=== PATIENT | female | born 1960 | race Caucasian/White ===

== ENCOUNTER 2019-05-03 22:50 | Inpatient (IN) | payer MEDICARE, MEDICAID ==
[~2019-05-03] VITALS: Ht 162.6 cm; Wt 91.4 kg
[2019-05-03] MEDS ORDERED: BENZ1TAB10 PO (23:18)
[2019-05-03] MEDS ORDERED: QUET100T PO (23:18)
[2019-05-04] MEDS ORDERED: IBUPROFEN 800 MG TABLET PO ONE (00:45)
[2019-05-04 01:16] LABS: BASOPHILS % (AUTO) 0.2 % (0.0-2.0); EOSINOPHILS % (AUTO) 1.2 % (1.0-6.0); HEMATOCRIT 43.5 % (36-46); HEMOGLOBIN 14.8 g/dL (12.0-16.0); LYMPHOCYTES # (AUTO) 1.8 K/uL (1.0-4.8); LYMPHOCYTES % (AUTO) 18.7 % (22.0-44.0); MEAN CORPUSCULAR HGB CONC 34.1 G/dL (31.0-37.0); MEAN CORPUSCULAR VOLUME 88 fL (80-100); MONOCYTES # (AUTO) 0.5 K/uL (0.1-1.0); MONOCYTES % (AUTO) 5.1 % (2.0-9.0); NEUTROPHILS # (AUTO) 7.2 K/uL (1.8-7.7); NEUTROPHILS % (AUTO) 74.8 % (40.0-70.0); PLATELET COUNT (AUTO) 182 K/uL (150-450); RED BLOOD CELL COUNT(AUTO) 4.94 MIL/uL (4.00-5.20)
[2019-05-04 01:17] LABS: APPEARANCE,URINE CLEAR (CLEAR); BILIRUBIN,URINE NEGATIVE (NEGATIVE); GLUCOSE, URINE (UA) NEGATIVE (NEGATIVE); KETONES,URINE NEGATIVE (NEGATIVE); LEUKOCYTE ESTERASE ,URINE NEGATIVE (NEGATIVE); NITRATE,URINE NEGATIVE (NEGATIVE); OCCULT BLOOD,URINE NEGATIVE (NEGATIVE); PROTEIN,URINE NEGATIVE (NEGATIVE); UROBILINOGEN,URINE 0.2 mg/dL (<=1.0)
[2019-05-04 01:22] LABS: AMPHET/METH SCREEN,URINE NEGATIVE (NEGATIVE); BARBITURATE SCREEN, URINE NEGATIVE (NEGATIVE); BENZODIAZEPINES SCREEN,URINE NEGATIVE (NEGATIVE); COCAINE SCREEN,URINE NEGATIVE (NEGATIVE); METHADONE SCREEN, URINE NEGATIVE (NEGATIVE); OPIATE SCREEN,URINE NEGATIVE (NEGATIVE)
[2019-05-04 01:23] LABS: ANION GAP 10 mmol/L (8-16); CALCIUM, TOTAL 10.1 mg/dL (8.8-10.5); CARBON DIOXIDE 27 mmol/L (22-29); CHLORIDE 103 mmol/L (98-107); CREATININE 0.78 mg/dL (0.60-1.30); GLOMERULAR FILTR. RATE CALC > 60 mL/min (>60); GLUCOSE,RANDOM 145 mg/dL (70-110); POTASSIUM 4.4 mmol/L (3.5-5.1); SODIUM SERUM 140 mmol/L (136-145); UREA NITROGEN, BLOOD 9 mg/dL (7-18)
[2019-05-04 01:29] LABS: ALANINE AMINOTRANSFERASE 27 U/L (12-78); ALBUMIN 4.2 g/dL (3.4-5.0); ALKALINE PHOSPHATASE 73 U/L (46-116); ASPARTATE AMINOTRANSFERASE 19 U/L (15-37); BILIRUBIN,TOTAL 1.2 mg/dL (0.1-1.0); TOTAL PROTEIN, SERUM 8.1 g/dL (6.4-8.2)
[2019-05-04] MEDS ORDERED: ZOLPIDEM TARTRATE 10 MG TABLET PO PRN (01:30)
[2019-05-04] MEDS ORDERED: LORazepam 2 MG TABLET PO PRN (01:30)
[2019-05-04] MEDS ORDERED: HALOPERIDOL 5 MG TABLET PO PRN (01:30)
[2019-05-04 01:31] LABS: CANNABINOID SCREEN,URINE NEGATIVE (NEGATIVE); PHENCYCLIDINE SCREEN,URINE NEGATIVE (NEGATIVE)
[2019-05-04 04:51] VITALS: BP 111/82
[2019-05-04] MEDS ORDERED: INFLUENZA VIRUS VACCINE QVS 2019-20 (3YR+)/PF 60 MCG/0.5 ML SYRINGE IM ONE (07:45)
[2019-05-04] MEDS ORDERED: NICOTINE 14 MG/24 HOUR PATCH TD PRN (13:15)
[2019-05-04] MEDS ORDERED: MAGNESIUM HYDROXIDE SUSPENSION 30 ML UDCUP PO PRN (13:15)
[2019-05-04] MEDS ORDERED: DOCUSATE SODIUM 100 MG CAPSULE PO PRN (13:15)
[2019-05-04] MEDS ORDERED: GuaiFENesin/D-METHORPHAN [SUGAR-FREE] 200-20MG/10 ML SYRUP UDCUP PO PRN (13:15)
[2019-05-04] MEDS ORDERED: MAG HYDROX/AL HYDROX/SIMETH ES 30 ML SUSPENSION UDCUP PO PRN (13:15)
[2019-05-04] MEDS ORDERED: PETROLATUM,WHITE 28 GM JELLY TP PRN (13:15)
[2019-05-04] MEDS ORDERED: ONDANSETRON HCL 4 MG TABLET PO PRN (13:15)
[2019-05-04] MEDS ORDERED: LOPERAMIDE HCL 2 MG CAPSULE PO PRN (13:15)
[2019-05-04] MEDS ORDERED: CloNIDine HCL 0.1 MG TABLET PO PRN (13:15)
[2019-05-04] MEDS ORDERED: ALBUTEROL SULFATE HFA 90 MCG/PUFF 8 GM INHALER IH PRN (13:15)
[2019-05-04] MEDS ORDERED: ACETAMINOPHEN 325 MG TABLET PO PRN (13:15)
[2019-05-04 14:22] VITALS: BP 140/85
[2019-05-04] MEDS: IBUPROFEN 400 MG TABLET PO PRN (14:22)
[2019-05-04 19:52] VITALS: BP 136/77
[2019-05-04] MEDS: QUEtiapine FUMARATE 100 MG TABLET PO SCH (21:35)
[2019-05-04] MEDS: SIMVASTATIN 10 MG TABLET PO SCH (21:35)
[2019-05-05 03:45] VITALS: BP 137/60
[2019-05-05] MEDS: MetFORMIN HCL 500 MG TABLET PO SCH (07:13)
[2019-05-05 08:00] LABS: CHOL/HDL RATIO 2.9 (3.9-5.7)
[2019-05-05 08:10] VITALS: BP 126/79
[2019-05-05] MEDS: LISINOPRIL 10 MG TABLET PO SCH (09:41)
[2019-05-05] MEDS: BENZTROPINE MESYLATE 1 MG TABLET PO SCH (09:41)
[2019-05-05] MEDS: IBUPROFEN 400 MG TABLET PO PRN (12:17)
[2019-05-05 16:45] VITALS: BP 131/88
[2019-05-05] MEDS: QUEtiapine FUMARATE 100 MG TABLET PO SCH (20:25)
[2019-05-05] MEDS: SIMVASTATIN 10 MG TABLET PO SCH (20:25)
[2019-05-06 04:55] VITALS: BP 120/78
[2019-05-06] MEDS: MetFORMIN HCL 500 MG TABLET PO SCH (06:54)
[2019-05-06 09:20] VITALS: BP 134/78
[2019-05-06] MEDS: IBUPROFEN 400 MG TABLET PO PRN (09:22)
[2019-05-06] MEDS: BENZTROPINE MESYLATE 1 MG TABLET PO SCH (09:22)
[2019-05-06] MEDS: LISINOPRIL 10 MG TABLET PO SCH (09:22)
[2019-05-06 16:15] VITALS: BP 117/72
[2019-05-06] MEDS: QUEtiapine FUMARATE 100 MG TABLET PO SCH (20:20)
[2019-05-06] MEDS: SIMVASTATIN 10 MG TABLET PO SCH (20:20)
[2019-05-06] MEDS ORDERED: DiphenhydrAMINE HCL 25 MG CAPSULE PO SCH (21:00)
[2019-05-07 00:30] VITALS: BP 106/73
[2019-05-07] MEDS: MetFORMIN HCL 500 MG TABLET PO SCH (07:02)
[2019-05-07 09:36] VITALS: BP 150/108
[2019-05-07] MEDS: LISINOPRIL 10 MG TABLET PO SCH (09:51)
[2019-05-07] MEDS: BENZTROPINE MESYLATE 1 MG TABLET PO SCH (09:51)
[2019-05-07] MEDS ORDERED: DIPH50 PO (11:11)
[2019-05-07] MEDS ORDERED: SIMV-259 PO (11:30)
[2019-05-07] MEDS ORDERED: LISI-661 PO (11:30)
[2019-05-07] MEDS ORDERED: METF-960 PO (11:30)
== END 2019-05-07 13:50 | disposition home or self-care (01) | DRG 885 ==
LOC: EMS 22:52 → 3EI 05-04 02:12
PROVIDERS: ADMIT Psychiatry & Neurology Psychiatry; ATTEND Psychiatry & Neurology Psychiatry
DX: F20.0 Paranoid schizophrenia (principal); R17 Unspecified jaundice; R45.851 Suicidal ideations; S82.891A Other fracture of right lower leg, initial encounter for closed fracture; R73.9 Hyperglycemia, unspecified; X58.XXXA Exposure to other specified factors, initial encounter; Y93.89 Activity, other specified; Y92.89 Other specified places as the place of occurrence of the external cause; Y99.8 Other external cause status; Z59.0 Homelessness